=== PATIENT | male | born 1990 ===

== ENCOUNTER 2016-10-11 22:04 | Emergency (ER) | payer SELFPAY ==
[~2016-10-11] VITALS: Ht 182.9 cm; Wt 113.0 kg
[2016-10-11 23:19] VITALS: Ht 182.9 cm; Wt 113.0 kg
== END 2016-10-11 22:45 | disposition left against medical advice (07) ==
LOC: FTE 22:04
DX: Z53.21 Procedure and treatment not carried out due to patient leaving prior to being seen by health care provider (principal)

== ENCOUNTER 2016-12-29 10:09 | Emergency (ER) | payer OTHER ==
[~2016-12-29] VITALS: Ht 182.9 cm; Wt 118.0 kg
[2016-12-29 10:20] VITALS: Ht 182.9 cm; Wt 118.0 kg
[2016-12-29] MEDS ORDERED: RANI150T5 PO (10:43)
[2016-12-29] MEDS ORDERED: PANT20TA2 PO (10:43)
--- NOTE | 2016-12-29 11:01 | ERD ---
ER Documentation Chief Complaint Date/Time DATE: 12/29/16 TIME: 10:59 Chief Complaint needs refill for protonix 20mg bid HPI 26-year-old with a history of gastritis, comes to the emergency room for refill for Protonix that he takes 20 mg twice a day. He states that he ran out a few days ago, and has associated nausea. Patient denies any fevers, chills. He reports normal stools, no melena. ROS All systems reviewed and are negative except as per history of present illness. Medications Home Meds Active Scripts Pantoprazole* (Protonix*) 20 Mg Tablet.dr, 20 MG PO BID, #60 TAB Prov:ERNST PARKER PA-C 12/29/16 Ranitidine Hcl* (Ranitidine Hcl*) 150 Mg Tablet, 150 MG PO AC BREAKFAST, #30 TAB Prov:ERNST PARKER PA-C 12/29/16 Allergies Allergies: Coded Allergies: No Known Allergy (Unverified , 10/11/16) PMhx/Soc Medical and Surgical Hx: pt denies Surgical Hx Hx Alcohol Use: No Hx Substance Use: No Hx Tobacco Use: No Physical Exam Vitals Vital Signs Date Time Temp Pulse Resp B/P Pulse Ox O2 Delivery O2 Flow Rate FiO2 12/29/16 10:20 98.0 67 18 137/79 97 Physical Exam General: Well-developed, well-nourished. The patient appears in no acute distress. HEENT: Head is normocephalic, atraumatic. No scleral icterus. Neck: Supple. Nontender. Lungs: Clear to auscultation. Normal air movement. Heart: Regular rate and rhythm. S1 and S2 are normal. No murmurs, gallops, or rubs. Abdomen: Soft, nontender, nondistended. Bowel sounds are normoactive. Extremities: No clubbing or cyanosis. Normal pulses. Moving extremities x 4. No weakness. Neurologic: Alert and oriented 3. No focal deficits. Skin: Normal turgor. No rash or lesions. Procedures/MDM 26-year-old male with history of gastritis will be given a medication refill for Protonix, he will be given ranitidine as well additionally given his recent onset of nausea associated with some running out of the Protonix in the a.m. Differentials considered include gastritis, GERD, upper GI bleed, pancreatitis, acute hepatobiliary disease, and among others. His abdomen is soft, there are no signs of acute or surgical abdominal process at this time the patient can safely be managed on an outpatient basis. Departure Diagnosis: Primary Impression: Encounter for medication refill Additional Impression: Gastritis Condition: Good Patient Instructions: Gastritis Vs. Ulcer Additional Instructions: Call your primary care doctor TOMORROW for an appointment during the next 1-2 days.See the doctor sooner or return here if your condition worsens before your appointment time. ERNST PARKER PA-C Dec 29, 2016 11:01
== END 2016-12-29 11:10 | disposition home or self-care (01) ==
LOC: FTE 10:09
DX: Z76.0 Encounter for issue of repeat prescription (principal); K29.70 Gastritis, unspecified, without bleeding
CPT/HCPCS: 99283